=== PATIENT | male | born 1960 | race Caucasian/White ===

== ENCOUNTER → 2022-03-16 | Outpatient (CLI) | payer OTHER ==
[~2022-03-16] MED LIST: BASAGLAR INSULIN SQ; FENOFIBRATE160 MG PO; FISH OIL CONC1 EACH PO; FLOMAX 0.4 MG0.4 MG PO; JANUVIA 100 MG100 MG PO; LIPITOR TAB 2020 MG PO; METOPROLOL TART25 MG PO; OMEPRAZOLE20 M1 PO; PLAVIX 75 MG TA75 MG PO; SERTRALINE HCL50 MG PO; VISTARIL 50 MG50 MG PO
== END ==
LOC: EXRD 12:59
DX: L03.116 Cellulitis of left lower limb (principal)
CPT/HCPCS: 93971